=== PATIENT | female | born 1965 | race Two or more races ===

== ENCOUNTER 2021-04-28 07:50 | Outpatient (REF) | payer OTHER, SELFPAY ==
[2021-04-28 09:26] LABS: COVID-19 Test Positive (Negative); IDNOW Serial# 55D5AD1C
== END 2021-04-28 07:51 | disposition home or self-care (01) ==
LOC: HO.LAB 07:50
PROVIDERS: Visit Provider Internal Medicine
DX: Z20.822 Contact with and (suspected) exposure to COVID-19 (principal)
CPT/HCPCS: 36415; 87635; C9803

== ENCOUNTER 2023-12-03 13:12 | Outpatient (REF) | payer MEDICAID, SELFPAY ==
[2023-12-03 16:16] LABS: Hematocrit 40.3 % (37.0-47.0); Hemoglobin 13.6 g/dl (12.0-16.0); Mean Corpuscular HGB Conc 33.7 g/dl (31.0-35.0); Mean Corpuscular Hemoglobin 30.8 pg (27.0-33.0); Mean Corpuscular Volume 91.2 fL (80.0-98.0); Mean Platelet Volume 10.5 fL (9.4-12.3); Platelet Count 262 X10*3/uL (160-400); Red Blood Count 4.42 X10*6/uL (4.20-5.50); Red Cell Distribution Width 12.8 % (11.0-16.0); White Blood Count 8.6 X10*3/uL (4.8-10.8)
[2023-12-03 16:23] LABS: Estimated Average Glucose 237 mg/dL; Hemoglobin A1c % 9.9 % (<6.0)
[2023-12-03 16:51] LABS: Alanine Aminotransferase 25 U/L (0-31); Albumin Level 4.3 g/dL (3.5-5.0); Alkaline Phosphatase 90 U/L (39-117); Anion Gap 13 (12-20); Aspartate Amino Transferase 19 U/L (5-31); Bilirubin Direct 0.1 mg/dL (0.0-0.5); Bilirubin Total 0.3 mg/dL (0.0-1.0); Blood Urea Nitrogen 14 mg/dL (9-16); Calcium 9.9 mg/dL (8.4-10.2); Carbon Dioxide 27 mmol/L (22-29); Chloride 101 mmol/L (96-108); Cholesterol 245 mg/dL (<200); Estimated Glomerular Filt Rate > 60; Glucose Random 299 mg/dL (60-115); HDL Cholesterol 58 mg/dL (>40); Potassium 4.1 mmol/L (3.3-5.1); Sodium 137 mmol/L (135-145); Total Protein 7.5 g/dL (6.5-8.0); Triglycerides 489 mg/dL (<150)
[2023-12-03 16:54] LABS: Creatinine Urine 53.91 mg/dL; Microalbum/Creatinine Ratio Ur 469.3 ug/mg cr (<30)
[2023-12-03 17:10] LABS: Free T4 (Free Thyroxine) 0.88 ng/dL (0.71-1.85); Thyroid Stimulating Hormone 1.37 uIU/mL (0.32-4.0); Vitamin D 25-OH Total 91.9 ng/mL (>30)
== END 2023-12-03 13:13 | disposition home or self-care (01) ==
LOC: HO.HHCL 13:12
PROVIDERS: Visit Provider Family Medicine
DX: I10 Essential (primary) hypertension (principal)
CPT/HCPCS: 36415; 80048; 80061; 80076; 82043; 82306; 82570; 83036; 84439; 84443; 85027

== ENCOUNTER 2023-12-23 10:15 | Outpatient (REF) | payer MEDICAID, SELFPAY ==
[2023-12-23 12:16] LABS: Cholesterol 205 mg/dL (<200); HDL Cholesterol 53 mg/dL (>40); LDL Cholesterol Calculated 123 mg/dL (<100); Triglycerides 148 mg/dL (<150)
== END 2023-12-23 10:16 | disposition home or self-care (01) ==
LOC: HO.HHCL 10:15
PROVIDERS: Visit Provider Internal Medicine
DX: E11.65 Type 2 diabetes mellitus with hyperglycemia (principal)
CPT/HCPCS: 36415; 80061

== ENCOUNTER 2024-01-08 10:06 | Outpatient (REF) | payer MEDICAID, SELFPAY ==
--- NOTE | ~2024-01-08 | MM_ITS ---
EXAMINATION: MM SCREENING DIGITAL BREAST TOMOSYNTHESIS, BILATERAL CLINICAL INFORMATION: Screening. Asymptomatic. COMPARISON: Mammography: Comparison is made with available priors TECHNIQUE: Digital breast mammography with tomosynthesis is performed in both the craniocaudal and mediolateral oblique views along with computer-aided detection (CAD). FINDINGS: There are scattered areas of fibroglandular density (ACR BI-RADS breast composition Category b). There are no significant masses, abnormal calcifications, or other abnormalities. MM/MM tomosynthesis screening BI IMPRESSION: No mammographic evidence of malignancy. ASSESSMENT: BI-RADS BI-RADS 1 - Negative RECOMMENDATION: Routine annual mammography screening. 1 year F/U This examination should not preclude the clinical evaluation of a suspicious palpable abnormality. This patient's information was entered into a reminder system with a target due date for their next mammogram. Electronically signed by: Viky Valente DO 01/22/2024 09:40 AM EDT
== END 2024-01-08 10:07 | disposition home or self-care (01) ==
LOC: HO.MAMMO 10:06
PROVIDERS: PCP Internal Medicine; Visit Provider Internal Medicine
DX: Z12.31 Encounter for screening mammogram for malignant neoplasm of breast (principal)
CPT/HCPCS: 77063; 77067

== ENCOUNTER → 2024-01-08 10:30 | Outpatient (BNV) | payer MEDICAID, SELFPAY | PROVIDERS: PCP Internal Medicine; Visit Provider Internal Medicine | DX: Z12.31 Encounter for screening mammogram for malignant neoplasm of breast (principal) | CPT/HCPCS: 77063; 77067 ==

== ENCOUNTER 2024-02-24 18:29 | Outpatient (REF) | payer MEDICAID, SELFPAY ==
[2024-02-27 15:57] LABS: HPV mRNA E6/E7 Not Detected (Not Detected)
== END 2024-02-24 18:30 | disposition home or self-care (01) ==
LOC: HO.HHCLNP 18:29
PROVIDERS: Visit Provider Internal Medicine
DX: Z12.4 Encounter for screening for malignant neoplasm of cervix (principal)
CPT/HCPCS: 87624; 88175